=== PATIENT | female | born 1985 | race Caucasian/White ===

== ENCOUNTER 2021-02-28 16:50 | Emergency (ER) | payer OTHER ==
[~2021-02-28] VITALS: Ht 157.5 cm; Wt 68.0 kg
[2021-02-28] MEDS ORDERED: HYDROCODON-ACE1 EAC7 PO (17:47)
[2021-02-28] MEDS ORDERED: PENICILLIN V P500 MG PO (17:48)
[2021-02-28] MEDS ORDERED: NAPROSYN500 MG PO (17:48)
[2021-02-28 17:58] VITALS: BP 176/80
== END 2021-02-28 17:59 | disposition home or self-care (01) ==
LOC: M.ERS 16:50
DX: K08.89 Other specified disorders of teeth and supporting structures (principal)